=== PATIENT | male | born 1945 | race Caucasian/White ===

== ENCOUNTER 2025-08-22 00:39 | Emergency (ER) | payer OTHER ==
[2025-08-22 01:13] LABS: #Basophils Less than 0.03 10x3/uL (0.0-0.2); #Eosinophils 0.04 10x3/uL (0.0-0.5); #Monocytes 0.84 10x3/uL (0.0-1.1); #Neutrophils 5.85 10x3/uL (1.5-8.4); %Basophils 0.1 % (0.0-2.0); %Eosinophils 0.5 % (0.0-6.0); %Lymphocytes 9.1 % (18.0-47.0); %Monocytes 11.2 % (0.0-10.0); %Neutrophils 78.4 % (40.0-75.0); Hematocrit 35.8 % (38.8-50.0); Hemoglobin 12.1 g/dL (13.5-17.5); Mean Corpuscular Hemoglobin 28.3 pg (27.0-33.0); Mean Corpuscular Volume 83.6 fL (81.2-95.1); Platelet Count 400 10x3/uL (150-450); Red Blood Cell (RBC) Count 4.28 10x6/uL (4.32-5.72); White Blood Cell (WBC) Count 7.47 10x3/uL (3.5-10.5)
[2025-08-22] MEDS ORDERED: Ondansetron PF 4 MG/2 ML Vial ONE (01:18)
[2025-08-22 01:25] LABS: INR-International Normal Ratio 1.1; PTT 35.0 sec (22.0-33.0); Prothrombin Time 11.7 sec (9.5-12.1)
[2025-08-22 01:29] LABS: ALT (SGPT) 14 U/L (Less than 45); AST (SGOT) 35 U/L (11-34); Albumin 2.6 g/dL (3.1-4.5); Alkaline Phosphatase 222 U/L (40-110); Anion Gap 13 mmol/L (10-20); BUN (Urea Nitrogen) 10 mg/dL (8.4-25.7); Bilirubin, Total 0.3 mg/dL (0.3-1.2); Calc. Creatinine Clearance 0 mL/min (70-130); Calcium 8.4 mg/dL (7.8-10.44); Carbon Dioxide 29 mmol/L (23-31); Chloride 86 mmol/L (98-107); Globulin 3.8 g/dL (2.4-3.5); Glucose 82 mg/dL (83-110); Lipase 17 U/L (8-78); Potassium 4.0 mmol/L (3.5-5.1); Sodium 124 mmol/L (136-145)
[2025-08-22 01:35] LABS: Troponin I Less than 0.010 ng/mL (< 0.028)
[2025-08-22 02:26] LABS: Actual Bicarbonate (HCO3v) 28.3 mEq/L (22-28); Analyzer IN Cardio CS ER; Base Excess 2.3 mEq/L (-2 - +2); Calcium, Ionized (venous) 1.07 mmol/L (1.16-1.32); Chloride (VBG) 90 mmol/L (98-106); Critical Notified By: CP.PH; Hematocrit-VBG 39 % (42.0-52.0); Hemoglobin (Hb) 13.1 g/dL (12.6-17.4); Potassium (VBG) 3.40 mmol/L (3.70-5.30); Puncture Site Other Site; RapidComm Collect By LAB.YY; Sodium 126 mmol/L (133-146)
[2025-08-22] MEDS ORDERED: levETIRAcetam 500 MG TAB ONE (03:56)
== END 2025-08-22 04:05 ==
LOC: EEVIPCON 00:39 → CSHERS 00:39
DX: R07.9 Chest pain, unspecified (principal); I10 Essential (primary) hypertension; J44.9 Chronic obstructive pulmonary disease, unspecified; Z86.73 Personal history of transient ischemic attack (TIA), and cerebral infarction without residual deficits; E03.9 Hypothyroidism, unspecified; K21.9 Gastro-esophageal reflux disease without esophagitis; Z79.82 Long term (current) use of aspirin; Z79.899 Other long term (current) drug therapy; Z79.890 Hormone replacement therapy; Z79.51 Long term (current) use of inhaled steroids
CPT/HCPCS: 36415; 71045; 80053; 82805; 83605; 83690; 83880; 84484; 85025; 85610; 85730; 86850; 86900; 86901; 93005; 94640; 94660; 94760; 96374